=== PATIENT | female | born 1960 ===

== ENCOUNTER 2024-05-16 11:46 | Emergency (ER) | payer OTHER, SELFPAY ==
--- NOTE | ~2024-05-16 | CT_ITS ---
EXAMINATION: CT HEAD WITHOUT IV CONTRAST HISTORY: AMS. TECHNIQUE: Unenhanced helical CT of the head was performed per standard departmental protocol. Coronal and sagittal reformats of the head were also evaluated. One or more of the following techniques was used for dose reduction: Automated exposure control, adjustment of the mA and/or kV according to patient size, use of iterative reconstruction technique. DLP: 761 mGy-cm COMPARISON: There are no prior studies for comparison. FINDINGS: BRAIN: The brain parenchyma is unremarkable. There is normal mora/white differentiation. The ventricular system is normal in size and configuration. There is no mass effect or midline shift. No intra- or extra-axial fluid collections are identified. SINUSES: The visualized paranasal sinuses are clear. The mastoid air cells and middle ear cavities are well pneumatized. ORBITS: The visualized orbits are unremarkable. BONES/SOFT TISSUES: The extracranial soft tissues are unremarkable. The calvarium is intact. No suspicious lytic or sclerotic lesions. CT/CT head/brain wo IV con IMPRESSION: Unremarkable unenhanced head CT. Electronically signed by: Fabrice Benedict MD 05/16/2024 12:32 PM [facility]
--- NOTE | 2024-05-16 11:56 | ED_ITS ---
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 Patient states that she is feeling fine like she has been and feels nothing new today. [facility] staff stated they were concerned the patient was hypertensive and slurring her speech. Patient denies any dizziness, lightheadedness, abdominal pain, nausea, vomiting, fever, chills, blurry vision, double vision, loss of vision, chest pain, difficulty breathing, shortness of breath, back pain, night sweats, pain with urination, increased urinary frequency, increased urinary urgency, blood in her urine or stool, syncope or a near syncopal episode, recent trauma or falls, bowel incontinence, bladder incontinence, or any other complaints at this time. Relieving factors: none Exacerbating factors: none Associated symptoms: denies other symptoms Treatments prior to arrival: none Related Data Previous Rx's ?Medication ?Instructions ?Recorded cefuroxime axetil 250 mg tablet 250 mg PO BID 7 days #14 tabs 05/16/24 Allergies Allergy/AdvReac Type Severity Reaction Status Date / Time No Known Allergies Allergy Verified 05/16/24 12:05 Review of Systems 2 Constitutional: Constitutional: Reports no additional constitutional complaints, Denies chills, Denies fever(s) and Denies night sweats Eyes: Eyes: Reports no additional eye complaints, Denies blurry vision, Denies change in vision, Denies diplopia, Denies eye discharge, Denies loss of vision and Denies eye pain ENT: Denies dizziness Cardiovascular: Cardiovascular: Reports no additional cardiovascular complaints, Denies chest pain, Denies lightheadedness, Denies Loss of Consciousness and Denies dyspnea Respiratory: Respiratory: Reports no additional respiratory complaints and Denies dyspnea Gastrointestinal: Gastrointestinal: Reports no additional gastrointestinal complaints, Denies abdominal pain, Denies melena, Denies hematochezia, Denies change in bowel habits and Denies change in stool character Genitourinary: Genitourinary: Denies hematuria, Denies urinary frequency, Denies dysuria, Denies urinary incontinence, Denies urinary hesitancy and Denies urinary urgency Musculoskeletal: Musculoskeletal: Reports no additional musculoskeletal complaints, Denies numbness and Denies tingling Neurologic: Denies dizziness, Denies loss of vision, Denies numbness and Denies tingling Psychiatric: Psychiatric: Reports no additional psychiatric complaints Endocrine: Endocrine: Reports no additional endocrine complaints Hematologic/Lymphatic: Hematologic/Lymphatic: Reports no additional hematologic/lymphatic complaints Allergic/Immunologic: Allergic/Immunologic: Reports no additional allergic/immunologic complaints [facility] Past Medical History Attestation statement: The following information was validated with the patient. Source: old records reviewed and nursing notes reviewed Social History Social History Smoked in Last 30 Days: No Use of substances other than those prescribed or required for medical reasons: No Advance Directives: No Advance Directives Information Provided: Yes Physical Exam ED Vital Signs: Vital Signs - 24 hr 05/16/24 11:57 05/16/24 15:15 Temperature 98.4 F 98.0 F Pulse Rate 106 H 112 H Respiratory Rate 18 18 Blood Pressure 166/81 H 191/89 H Pulse Oximetry 97 96 Oxygen Delivery Method Room Air Room Air BMI result Body Mass Index 30.9 Const General: cooperative, no acute distress, alert and awake Nutritional Appearance: well nourished Orientation/consciousness: patient oriented x3 Limitations: no limitations [facility] Head: Yes normal to inspection and Yes atraumatic Ears: hearing grossly normal bilaterally and external ears normal General nose exam: Normal external nose present, no nasal discharge noted and no epistaxis Face and sinus: Yes normal facial exam, No abrasion and No laceration Mouth: Normal oral and palatal mucosa present, no drooling and no muffled voice Eyes General: appearance normal, both eyes and all related structures Periorbital: periorbital findings normal Eyelids: Yes eyelids normal Conjunctivae: conjunctivae normal Pupils: Equal, round and reactive pupils present EOM: EOMs intact bilaterally Neck Neck: Yes normal visual inspection, Yes full ROM and Yes no lymphadenopathy Chest Chest palpation & inspection: normal inspection of the chest Resp Effort & Inspection: normal respiratory effort and able to speak in complete sentences Cardio Rate: tachycardic Rhythm: regular rhythm GI Inspection: Yes normal to inspection Neuro General: patient oriented x3, moves all extremities and CN's II-XI intact bilaterally Cranial nerves: Yes Equal, round and reactive pupils present Cognition (Neuro): normal cognition Extrem General: Yes normal to inspection, Yes full ROM and Yes capillary refill normal Psych Appearance: grossly normal Mental Status: mental status grossly normal Affect: normal affect Attitude: cooperative Thought process: Normal thought process present Thought content: Normal thought content present Insight: Good insight present (Psych) NIH Stroke Scale Internal: Initial- Upon Arrival Time: 11:46 Level of Consciousness: Alert Level of Consciousness Questions: Answers both questions correctly Level of Consciousness Commands: Performs both tasks correctly Best Gaze: Normal Visual: No visual loss Facial Palsy: Normal Motor Arm (Right): No drift Motor Arm (Left): No drift Motor Leg (Right): No drift Motor Leg (Left): No drift Limb Ataxia: Absent Sensory: Normal Best Language: No aphasia Dysarthia: Normal Extinction and Inattention: No abnormality Score: 0 Medical Decision Making Medical Decision Making MDM Narrative: Patient is a 63 year old assigned female at with a 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 Patient's physical exam was as noted in the physical exam portion of this note. Patient's blood work was unremarkable. Patient's urine showed a possible UTI, will treat. Patient's EKG was unremarkable. Patient's head CT showed no acute process. Patient has a slow speech pattern which appears to be her baseline. I reviewed her most recent [facility] admission from 05/12-05/15 where she had an extensive work up for stroke / alerted mental status and it was negative. They noted her chronic tachycardia (reflected on her vitals during her stay there) and her slow speech pattern. She was evaluated by psychiatry there who suggested this was behavioral and recommended inpatient psychiatric treatment which is why she was transferred to [facility]. I called and spoke to Shani the JOB ORDER CLERK on at [facility] and gave her report / hand off about the patient's work up / findings. Patient has no concerns for acute stroke. I explained my physical exam findings as well as all test results to the patient. I answered all questions asked by the patient. I stressed the importance of the patient taking her medication as directed (either prescribed or as the over the counter packaging recommends). I stressed the importance of the patient following up with her primary care provider. I stressed the importance of the patient returning to the emergency department immediately if her symptoms were to worsen or if she were to develop any dizziness, shortness of breath, difficulty breathing, chest pain, blurry vision, loss of vision, nausea, vomiting, abdominal pain, fever, chills, back pain, or any other complaints. Patient verbalized agreement and understanding with this treatment plan and discharge back to [facility]. Differential Diagnosis Differential Diagnoses: The differential diagnosis associated with the presentation includes Abnormal behavior Chronic HTN Chronic tachycardia UTI Admission/Observation Consideration of admission/observation: Escalation of care including admission/observation considered Patient would have been admitted to the hospital had her work up had any findings where hospital admission was appropriate and her clinical presentation warranted hospital admission. Lab Data [facility] Lab Attestation statement: I reviewed the patient's lab results. My interpretation of these results are in the [facility] Rationale portion of this note. 05/16/24 13:03 05/16/24 13:03 Labs: Lab Results 05/16/24 05/16/24 05/16/24 Range/Units 10:30 13:03 13:32 WBC 11.1 H (4.8-10.8) X10*3/uL RBC 4.99 (4.20-5.50) X10*6/uL Hgb 15.0 (12.0-16.0) g/dl Hct 45.3 (37.0-47.0) % MCV 90.8 (80.0-98.0) fL MCH 30.1 (27.0-33.0) pg MCHC 33.1 (31.0-35.0) g/dl RDW 12.5 (11.0-16.0) % Plt Count 306 (160-400) X10*3/uL MPV 9.6 (9.4-12.3) fL Immature Gran % (Auto) 0.4 (0.0-0.4) % Neut % (Auto) 81.9 H (45-73) % Lymph % (Auto) 8.6 L (20-40) % [place] % (Auto) 8.4 (2-11) % Eos % (Auto) 0.2 (0-4) % Baso % (Auto) 0.5 (0-2) % Lymph # (Auto) 1.0 L (1.2-4.9) X10*3/uL [place] # (Auto) 0.9 (0.1-1.2) X10*3/uL Eos # (Auto) 0.0 (0.0-0.4) X10*3/uL Baso # (Auto) 0.1 (0.0-0.2) X10*3/uL Abs Immat Gran (auto) 0.04 H (0.00-0.03) X10*3/uL Absolute Neuts (auto) 9.1 H (2.0-8.3) x10*3/uL Absolute Nucleated RBC 0.000 (0.0-0.012) X10*3/uL Nucleated RBC % (auto) 0.0 (0.0-0.2) /100WBC PT 12.1 (10.9-12.4) SEC INR 1.0 (0.9-1.1) APTT 32.8 (26.0-36.8) SEC Sodium 140 (135-145) mmol/L Potassium 3.8 (3.3-5.1) mmol/L Chloride 104 (96-108) mmol/L Carbon Dioxide 21 L (22-29) mmol/L Anion Gap 19 (12-20) BUN 19 H (9-16) mg/dL Creatinine 0.78 (0.5-1.4) mg/dL Estim Creat Clear Calc 78.3 Estimated GFR > 60 Random Glucose 108 (60-115) mg/dL Calcium 10.1 (8.4-10.2) mg/dL Magnesium 2.0 (1.6-2.6) mg/dL Total Bilirubin 0.6 (0.0-1.0) mg/dL AST 32 H (5-31) U/L ALT 24 (0-31) U/L Alkaline Phosphatase 135 H (39-117) U/L Total Protein 9.3 H (6.5-8.0) g/dL Albumin 4.5 (3.5-5.0) g/dL TSH 3.22 (0.32-4.0) uIU/mL Hold Red Top See Note Hold Yellow Top See Note Urine Color Urine Appearance Urine pH (5.0-9.0) Ur Specific [place] (1.005-1.025) Urine Protein (Neg-Trace) mg/dL Urine Glucose (UA) (Negative) mg/dL Urine Ketones (Negative) mg/dL Urine Blood (Negative) Urine Nitrite (Negative) Ur Leukocyte Esterase (Negative) Urine RBC (0-2) /HPF Urine WBC (0-5) /HPF Ur Squamous Epith Cells (0-2) /HPF Urine Bacteria (None Seen) Hyaline Casts (0-2) /LPF Valproic Acid < 12.5 L (50.0-100.0) mcg/mL [place] < 0.10 L (0.60-1.20) mmol/L Influenza Type A (PCR) NEGATIVE (Negative) Influenza Type B (PCR) NEGATIVE (Negative) RSV RNA Qual (PCR) NEGATIVE (Negative) SARS-CoV-2 RNA (RT-PCR) NEGATIVE (Negative) 05/16/24 Range/Units 14:48 WBC (4.8-10.8) X10*3/uL RBC (4.20-5.50) X10*6/uL Hgb (12.0-16.0) g/dl Hct (37.0-47.0) % MCV (80.0-98.0) fL MCH (27.0-33.0) pg MCHC (31.0-35.0) g/dl RDW (11.0-16.0) % Plt Count (160-400) X10*3/uL MPV (9.4-12.3) fL Immature Gran % (Auto) (0.0-0.4) % Neut % (Auto) (45-73) % Lymph % (Auto) (20-40) % [place] % (Auto) (2-11) % Eos % (Auto) (0-4) % Baso % (Auto) (0-2) % Lymph # (Auto) (1.2-4.9) X10*3/uL [place] # (Auto) (0.1-1.2) X10*3/uL Eos # (Auto) (0.0-0.4) X10*3/uL Baso # (Auto) (0.0-0.2) X10*3/uL Abs Immat Gran (auto) (0.00-0.03) X10*3/uL Absolute Neuts (auto) (2.0-8.3) x10*3/uL Absolute Nucleated RBC (0.0-0.012) X10*3/uL Nucleated RBC % (auto) (0.0-0.2) /100WBC PT (10.9-12.4) SEC INR (0.9-1.1) APTT (26.0-36.8) SEC Sodium (135-145) mmol/L Potassium (3.3-5.1) mmol/L Chloride (96-108) mmol/L Carbon Dioxide (22-29) mmol/L Anion Gap (12-20) BUN (9-16) mg/dL Creatinine (0.5-1.4) mg/dL Estim Creat Clear Calc Estimated GFR Random Glucose (60-115) mg/dL Calcium (8.4-10.2) mg/dL Magnesium (1.6-2.6) mg/dL Total Bilirubin (0.0-1.0) mg/dL AST (5-31) U/L ALT (0-31) U/L Alkaline Phosphatase (39-117) U/L Total Protein (6.5-8.0) g/dL Albumin (3.5-5.0) g/dL TSH (0.32-4.0) uIU/mL Hold Red Top Hold Yellow Top Urine Color Yellow Urine Appearance Cloudy Urine pH 5.5 (5.0-9.0) Ur Specific [place] >= 1.030 H (1.005-1.025) Urine Protein 30 (1+) H (Neg-Trace) mg/dL Urine Glucose (UA) Negative (Negative) mg/dL Urine Ketones 80 (Negative) mg/dL Urine Blood Negative (Negative) Urine Nitrite Negative (Negative) Ur Leukocyte Esterase Moderate (2+) H (Negative) Urine RBC 0-2 (0-2) /HPF Urine WBC >50 H (0-5) /HPF Ur Squamous Epith Cells 0-2 (0-2) /HPF Urine Bacteria Trace (None Seen) Hyaline Casts 3-5 (0-2) /LPF Valproic Acid (50.0-100.0) mcg/mL [place] (0.60-1.20) mmol/L Influenza Type A (PCR) (Negative) Influenza Type B (PCR) (Negative) RSV RNA Qual (PCR) (Negative) SARS-CoV-2 RNA (RT-PCR) (Negative) Independent Interpretation I performed an independent interpretation of an: EKG and CT Scan Interpretation: My interpretation is in agreement with the radiologist's impression of this imaging study. L Report Number: [id number]: Total DLP = 761.00 mGy-cm EXAMINATION: CT HEAD WITHOUT IV CONTRAST HISTORY: AMS. TECHNIQUE: Unenhanced helical CT of the head was performed per standard departmental protocol. Coronal and sagittal reformats of the head were also evaluated. One or more of the following techniques was used for dose reduction: Automated exposure control, adjustment of the mA and/or kV according to patient size, use of iterative reconstruction technique. DLP: 761 mGy-cm COMPARISON: There are no prior studies for comparison. FINDINGS: BRAIN: The brain parenchyma is unremarkable. There is normal mora/white differentiation. The ventricular system is normal in size and configuration. There is no mass effect or midline shift. No intra- or extra-axial fluid collections are identified. SINUSES: The visualized paranasal sinuses are clear. The mastoid air cells and middle ear cavities are well pneumatized. ORBITS: The visualized orbits are unremarkable. BONES/SOFT TISSUES: The extracranial soft tissues are unremarkable. The calvarium is intact. No suspicious lytic or sclerotic lesions. CT/CT head/brain wo IV con IMPRESSION: Unremarkable unenhanced head CT. Electronically signed by: Farbice Benedict MD 05/16/2024 12:32 PM [facility] Dictated By: Fabrice Benedict MD Signed By: Electronically signed by Fabrice Benedict MD 05/16/24 1232 I independently interpreted this EKG and am in agreement with the below findings: Vent. Rate: 106 BPM Atrial Rate: 106 BPM P-R Int: 122 ms QRS Dur: 78 ms QT Int: 346 ms P-R-T Axes: 67 -48 44 degrees QTcB Int: 459 ms Sinus tachycardia Left anterior fascicular block No previous ECGs available Referred By: Eva Gomez Electronically Signed By: ONI PAREDES MD Dictated By: Oni Paredes MD Signed By: Electronically signed by Oni Paredes MD 05/16/24 1306 Radiology Impression Discussion of test interpretation with radiology: I have reviewed the radiologist's reading. Independent Historian Clinical information obtained from an independent historian. History obtained from or confirmed by: EMS (EMS provided additional history and confirmed the history provided by the patient.) External Record Review External record reviewed: Other (reviewed [facility] records as noted in the MDM Rationale portion of this note. ) Prescription Management I considered prescription management with: Antibiotic (patient prescribed an antibiotic as noted in the MDM Rationale portion of this note) Chronic Conditions Patient?s care impacted by: Hypertension Discharge Plan Discharge Clinical Impression: High blood pressure, Chronic tachycardia, Urinary tract infection Patient Disposition: [facility] Transfer Details: Back to [facility] Instructions: Urinary Tract Infection in Women (DC) Additional Instructions: Your urine showed evidence of a possible UTI - please take your antibiotic for this. Follow up with your primary care provider. Return to the emergency department immediately if your symptoms worsen or if you develop any dizziness, shortness of breath, difficulty breathing, chest pain, blurry vision, loss of vision, nausea, vomiting, abdominal pain, fever, chills, back pain, or any other complaints. Prescriptions: New cefuroxime axetil 250 mg tablet 250 mg PO BID 7 Days Qty: 14 0RF Referrals: Casimiro Dixon DO, MD [Primary Care Provider] - Print Language: Danish
[2024-05-16 11:57] VITALS: BP 166/81; BP 170/116; PULSE 106; PULSE 114; RESP 18; TEMP 36.9; O2SAT 97; O2SAT 98; BMI 30.9
--- NOTE | 2024-05-16 12:11 | ECG_ITS ---
Test Reason : AMS Blood Pressure : */* mmHG Vent. Rate : 106 BPM Atrial Rate : 106 BPM P-R Int : 122 ms QRS Dur : 78 ms QT Int : 346 ms P-R-T Axes : 67 -48 44 degrees QTcB Int : 459 ms Sinus tachycardia Left anterior fascicular block Abnormal ECG No previous ECGs available Referred By: Eva Gomez Electronically Signed By: CHIKIS PAREDES MD
[2024-05-16 13:10] LABS: MANUAL DIFF FLAG NO
[2024-05-16 13:18] LABS: Basophils Absolute Auto 0.1 X10*3/uL (0.0-0.2); Basophils Percent Auto 0.5 % (0-2); Eosinophils Percent Auto 0.2 % (0-4); Hematocrit 45.3 % (37.0-47.0); Imm Gran Abs Auto 0.04 X10*3/uL (0.00-0.03); Imm Gran Pct Auto 0.4 % (0.0-0.4); Lymphocytes Percent Auto 8.6 % (20-40); Mean Corpuscular HGB Conc 33.1 g/dl (31.0-35.0); Mean Corpuscular Hemoglobin 30.1 pg (27.0-33.0); Mean Corpuscular Volume 90.8 fL (80.0-98.0); Mean Platelet Volume 9.6 fL (9.4-12.3); Monocytes Absolute Auto 0.9 X10*3/uL (0.1-1.2); Monocytes Percent Auto 8.4 % (2-11); Neutrophils Absolute Auto 9.1 x10*3/uL (2.0-8.3); Neutrophils Percent Auto 81.9 % (45-73); Platelet Count 306 X10*3/uL (160-400); Red Blood Count 4.99 X10*6/uL (4.20-5.50); Red Cell Distribution Width 12.5 % (11.0-16.0); White Blood Count 11.1 X10*3/uL (4.8-10.8)
[2024-05-16 13:20] LABS: Prothrombin Time 12.1 SEC (10.9-12.4)
[2024-05-16 13:24] LABS: Partial Thromboplastin Time 32.8 SEC (26.0-36.8)
--- OUTSIDE RECORDS SUMMARY | 2024-05-16 13:34 | XMS_ITS | Continuity of Care Document ---
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 Children, Spouse. Nutrition/Health Diet: Regular, Low sodium. Caffeine intake amount: 1cup daily. Feels highly stressed: Yes. Substance Abuse Use: Never. Tobacco Use: Never smoker. Other tobacco user in household: No. Family History Diabetes mellitus type II: Father. Immunizations Vaccine Date Status [id number] 12y+ bivalent booster vax 01/21/2022 Recorded influenza virus vaccine, inactivated 01/14/2022 Recorded SARS-CoV-2 mRNA ([id number]) vax 07/20/2021 Recorded SARS-CoV-2 (COVID-19) mRNA BNT-162b2 vac 01/23/2021 Recorded influenza virus vaccine, inactivated 01/09/2021 Recorded SARS-CoV-2 (COVID-19) mRNA BNT-162b2 vac 06/01/2020 Recorded SARS-CoV-2 (COVID-19) mRNA BNT-162b2 vac 05/11/2020 Recorded pneumococcal 23-valent vaccine - Not Given Comments : Patient Refuses pneumococcal 23-valent vaccine - Not Given Comments : Patient Refuses influenza virus vaccine, inactivated 02/14/2019 Recorded influenza virus vaccine, inactivated 12/22/2013 Recorded FluLaval (oldterm) 01/12/2009 Given Comments : CDC info given to pt. Admission evaluation note * Richard Major DO: PERFORM, MODIFY Event Display: Admission Note Authored Date: Patient: ??LI ROHDES ? Age:??63 Years?Sex:??Female?:??1960?? Chief Complaint/Reason for Consultation pt coming from home eith c/o fatigue x 2 days, slow to respone. 0 on stroke scale. A&O x 4. independently ambulates. History of Present Illness This is a 63-year-old female with past medical history AVNRT status post ablation 2007 and history of coxsackievirus with cardiomyopathy, hypertension depression and obesity who presented with altered mental status. ?? Per discussion with ED provider patient had worsening symptoms beginning 3 days ago worsening fatigue and altered mental status compared to baseline. ?? Upon arrival to ED patient was hemodynamically stable and afebrile satting 100% on room air. Lab work without leukocytosis, hemoglobin and??platelets within normal limit.?? Creatinine 0.65 without electrolyte abnormality.?? Alk phos elevated 142 other LFTs within normal limit. Lactate within normallimit 1.3.?? Troponin 10.?? TSH within normal limits at 2.24 blood test 5.?? Serum ethanol was undetectable.?? Salicylate level and serum level were negative.?? Ammonia within normal limitsat 34.?? CT of the head showed no acute intracranial pathology CT angio of the head and neck is pending formal read but preliminary V rad report showed no acute abnormalities or large vessel occlusion.?? UA was ordered but has yet to be provided and urine drug screen pending sample as well.?? Patient was placed under observation.?? General medicine for further evaluation of altered mental status. ?? Upon my evaluation patient is resting in stretcher in ED. She is alert to person, place, time and events. Tells me some of her family members were sick last week with the flu. Patient herself did not have same symptoms but reports she has been fatigued tired and having poor appetite. Denies fever, shortness of breath, cough, chest pain. Had nausea without vomiting. No abdominal pain, dysuria, vision changes, numbness tingling, weakness. Has had intermittent dull headache. Urinating and defecating without issue. Taking her home medications as prescribed. She denies alcohol use, tobacco use or other drug use. Denied vitamins or other herbal supplements. We went into a long discussion about how historically she was admitted to the psych unit here at [facility] and??diagnosed with bipolar disorder. She was previously on Abilify,??which she no longer takes. 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 She was accused of hoarding material from the school and had issues with other staff members. She ultimately lost??her job and then lost an appeal and is no longer eligible to work with children. She has been feeling depressed about this because since losing her job her is the source of income for their family and her son has medical issues of hisown. She is overall worried because she cant get a job and had to declare bankruptcy. At present she denies SI, HI, auditory or visual hallucinations. She reports having flashbacks about the events surrounding losing her job and this has been upsetting to her. She is agreeable to seeing psychology while in hospital. She is full code.? Review of Systems A full review of systems was completed and is otherwise negative except as mentioned in history of present illness. Objective Vital Signs?? Temperature: 98.4 DegF (05/14/24 01:00:00) Temperature Route: Oral (05/14/24:00:00) Pulse Rate:??97 bpm??High (05/14/24:00:00) Respiratory Rate: 16 br/min (05/14/24:00:00) Systolic Blood Pressure: 134 mm Hg (05/14/24:00:00) Diastolic Blood Pressure: 67 mm Hg (05/14/24:00:00) Pulse Pressure: 67 mm Hg (05/14/24:00:00) Oxygen Saturation: 99 % (05/14/24:00:00) Mode of Delivery (Oxygen): Room air (05/14/24 01:00:00) Early Warning Score: 0 (05/14/24 01:12:57) ?? Physical Exam Constitutional: Alert, in no distress, appears stated age Mental Status: Oriented to person, place and time. Head: Normocephalic. Eyes: Pupils are equal, round and reactive to light. Extraocular muscles intact. Ear, Nose and Throat: Oropharynx clear, mucous membranes moist. Ears and nose without masses, lesions or deformities. Trachea midline. Neck: Supple, Full range of motion. Respiratory: Clear to auscultation. No wheezing, rales or rhonchi. Cardiovascular: S1 S2 regular. No murmurs, rubs or gallops. No JVD, no LE edema. Gastrointestinal: Abdomen soft, non-tender, non-distended. Normal bowel sounds. No pulsatile mass. Neurologic: No focal neurological deficits. Moves all extremities spontaneously. Skin: No rashes or lesions. No petechiae or purpura.?? Musculoskeletal: No cyanosis or clubbing. No gross deformities. Normal range of motion. Psychiatric: Normal mood and affect Assessment/Plan Assessment:??This is a 63-year-old female with past medical history AVNRT status post ablation 2008and history of coxsackievirus with cardiomyopathy, hypertension depression and obesity who presented with altered mental status. ?? AMS (altered mental status) (R41.82):?? Labwork for AMS unremarkable.??CTH unremarkable.??CTA head prelim without acute pathology.??No neuro deficits on exam. Suspect her presentation is psychological with??hx of biploar??disorder and no longer on medication. Patient denies active SI, HI, auditory or visual hallucinations. Is endorsing flashbacks about her issues with losing the appeal to work with children due to history of hoarding and diagnosis of BPD. She is??currently??calm cooperative and agreeable to see psychology.? Followup formal read CTA head Followup utox??and UA?? Check viral pathogen panel PCR Psych consult SW consult? Hypertension (I10):?? Continue home metoprolol and lisinopril Considered changing metoprolol to something less lipophilic like carvedilol for benefit of her mental status but she has been on this since at least??2019 and??can be discussed with her vending service technician on outpatient followup? Hypothyroidism (E03.9):?? TSH wnl?? Continue home levothyroxine? VTE Prophylaxis:??Ambulatory ?VTE Prophylaxis Assessment:??Risk Level documented as Low Risk ?? Code Status:??Full - discussed on admission?Order Code Status:??Code Status Ordered ?? This note was created using [employer] speech recognition software, there may be unwanted word substitution, typographical errors or grammatical error, an attempt at proofreading has been made to minimize errors. please call if there are any questions regarding plan of care. ?? I spent a total of 60 minutes today reviewing the chart / medical records, evaluating the patient, evaluating and interpreting laboratory and imaging data, formulating and discussing the treatmentplan, and documenting the encounter Histories Allergies Allergies ?(Active and Proposed Allergies Only) Bactrim? (Severity: Unknown severity, Onset: Unknown) Vicodin? (Severity: Unknown severity, Onset: Unknown) ? Past Medical History/Problem List Active Problems(5) Acute depression External otitis of left ear, subacute Hyperlipidemia Severe obesity (BMI 35.0-39.9) with comorbidity SVT - Supraventricular tachycardia ? Past Surgical History No surgery history documented. ? Social History Alcohol Details:??Use: Current. ??Frequency: 1-2 times per month. Employment/School Details:??Status: Employed. Exercise Details:??Regular exercise: Yes. Home/Environment Details:??Living situation: Home/Independent. ??Lives with: Children, Spouse. Nutrition/Health Details:??Diet: Regular, Low sodium. ??Caffeine intake amount: 1cup daily. ??Feels highly stressed:Yes. Substance Abuse Details:??Use: Never. Tobacco Details:??Use: Never smoker. ??Other tobacco user in household: No. ? Family History Father: Diabetes mellitus type II ? Medications Home Medications Levothyroxine (levothyroxine 0.112 mg oral tablet)??1 tab(s) 112 Microgram By Mouth Daily Lisinopril (lisinopril 10 mg oral tablet)??10 Milligram 1 tablet By Mouth Daily Metoprolol (Metoprolol Succinate ER 50 mg oral tablet, extended release)??See Instructions TAKE 1 TABLET BY MOUTH EVERY DAY ? Results Recent Labs BLOOD COUNT & DIFF WBC 9.3 k/mm3 ()?? 05/13/2024 21:21 RBC 4.75 m/mm3 ()?? 05/13/2024 21:21 Hgb 14.4 Gm/dL ()?? 05/13/2024 21:21 Hct 44.4 % ()?? 05/13/2024 21:21 MCV 93.5 femtoliters ()?? 05/13/2024 21:21 MCH 30.3 pg ()?? 05/13/2024 21:21 MCHC 32.4 Gm/dL (Low)?? 05/13/2024 21:21 Platelet Count 346 k/mm3 ()?? 05/13/2024 21:21 RDW-SD 42.9 femtoliters ()?? 05/13/2024 21:21 MPV 10.1 femtoliters ()?? 05/13/2024 21:21 Nucleated RBC (Automated) 0.0 #/100 WBC'S ()?? 05/13/2024 21:21 Abs. NRBC 0.0 k/mm3 ()?? 05/13/2024 21:21 Abs. Neut 7.4 k/mm3 (High)?? 05/13/2024 21:21 Abs. Lymph 1.1 k/mm3 ()?? 05/13/2024 21:21 Abs. Polk 0.7 k/mm3 ()?? 05/13/2024 21:21 Abs. Eo 0.0 k/mm3 ()?? 05/13/2024 21:21 Abs. Baso 0.1 k/mm3 ()?? 05/13/2024 21:21 Neut % 80.1 % (High)?? 05/13/2024 21:21 Lymph % 11.4 % (Low)?? 05/13/2024 21:21 Polk % 7.3 % ()?? 05/13/2024 21:21 Eos % 0.2 % ()?? 05/13/2024 21:21 Baso % 0.6 % ()?? 05/13/2024 21:21 Imm Gran 0.4 % ()?? 05/13/2024 21:21 Abs. Imm Gran 0.0 k/mm3 ()?? 05/13/2024 21:21 ?? CARDIAC High Sensitivity Troponin (HSTnT) 10 ng/L ()?? 05/13/2024 21:21 ?? CHEM GENERAL Sodium 139 mmol/L ()?? 05/13/2024 21:21 Potassium 4.0 mmol/L ()?? 05/13/2024 21:21 Chloride 100 mmol/L ()?? 05/13/2024 21:21 Bicarbonate Level 25 mmol/L ()?? 05/13/2024 21:21 Anion Gap 14 mmol/L ()?? 05/13/2024 21:21 Glucose Level 98 mg/dL ()?? 05/13/2024 21:21 BUN 14 mg/dL ()?? 05/13/2024 21:21 Creatinine-Blood 0.65 mg/dL ()?? 05/13/2024 21:21 Estimated GFR Creatinine 100 ML/MIN/1.73 M2 ()?? 05/13/2024 21:21 Calcium 9.9 mg/dL ()?? 05/13/2024 21:21 Protein, Total 8.7 Gm/dL (High)?? 05/13/2024 21:21 Albumin 4.6 Gm/dL ()?? 05/13/2024 21:21 AG Ratio 1.1 ()?? 05/13/2024 21:21 Alkaline Phosphatase 142 units/L (High)?? 05/13/2024 21:21 AST (SGOT) 17 units/L ()?? 05/13/2024 21:21 ALT (SGPT) 15 units/L ()?? 05/13/2024 21:21 Bilirubin, Total 0.5 mg/dL ()?? 05/13/2024 21:21 Lactate 1.3 mmol/L ()?? 05/13/2024 21:21 ?? ENDOCRINE/TUMOR MARKER TSH 2.24 uIU/mL ()?? 05/13/2024 21:21 Blood 5 mIU/mL (High)?? 05/13/2024 21:21 ?? MISC. CHEMISTRY Ammonia, Venous 34 ??mole/L ()?? 05/13/2024 22:10 ?? TOXICOLOGY/TDM Ethanol, Serum or Plasma NONE DETECTED mg/dL ()?? 05/13/2024 21:21 Salicylate Level <0.3 mg/dL (Low)?? 05/13/2024 21:21 Acetaminophen Level <5 mg/L (Low)?? 05/13/2024 21:21 ? EKG study * Event Display: ECG 12-Lead Authored Date: Please click on pdf link to open report * Event Display: ECG 12-Lead Authored Date: Ventricular Rate: 95 BPM Atrial Rate: 95 BPM P-R Interval: 132 ms QRS Duration: 76 ms Q-T Interval: 358 ms QTC Calculation(Bazett): 449 ms P [place]: 64 degrees R [place]: -39 degrees T [place]: 20 degrees Normal sinus rhythm Left axis deviation ST and T wave abnormality, consider lateral ischemia Abnormal ECG When compared with ECG of 21-Mar-2022 03:10, No significant change was found Confirmed by LISBET CURRY [facility] ([id number]) on 05/14/2024 5:15:15 PM [place]: [facility] * Elda Barrera MD: PERFORM Event Display: [facility] Authored Date: Patient: ??LI RHODES ? Age:??63 Years?Sex:??Female?:??1960?? Subjective Patient seen and examined.?? Slow to answer to my questions. ??Denies any pain or discomfort. ??States that she has not been feeling well for the past few days.?? Denies any difficulty breathing no chest pain no palpitations dizziness or lightheadedness. ??Denies any nausea vomiting??pain at this time. She keeps??telling me??that she needs to??talk??to??the police as she has??something to tell them.?? She states that she has already spoken about this to the high school social science teacher and??waiting. Review of Systems Reviewed and denied any symptoms??except as mentioned above Objective ? Vital Signs?? Temperature: 98.4 DegF (05/14/24 11:48:00) Temperature Route: Oral (05/14/24 11:48:00) Pulse Rate: 76 bpm (05/14/24 11:48:00) Respiratory Rate: 16 br/min (05/14/24 11:48:00) Systolic Blood Pressure: 135 mm Hg (05/14/24 11:48:00) Diastolic Blood Pressure: 74 mm Hg (05/14/24 11:48:00) Blood pressure sites: Arm, left (05/14/24 11:48:00) Mean Arterial Pressure: 96 mm Hg (05/14/24 05:57:00) Pulse Pressure: 49 mm Hg (05/14/24 05:57:00) Oxygen Saturation: 97 % (05/14/24 11:48:00) Mode of Delivery (Oxygen): Room air (05/14/24 11:48:00) Early Warning Score: 0 (05/14/24 11:53:27) ? Physical Exam Middle-aged female not in any distress, ill-appearing HEENT PERRLA, EOMI Neck supple Chest clear to auscultation Heart S1-S2 regular Abdomen soft nontender bowel sounds present Extremities no edema [employer] LEADER awake alert oriented x3.?? No gross focal neurological deficit _ Inpatient Medications Medications (12) Active SCHEDULED: (4) Levothyroxine 112 mcg Tablet (levothyroxine 0.112 mg oral tablet) ??112 mcg, By Mouth, Daily Lisinopril 10 mg Tablet (lisinopril 10 mg oral tablet) ??10 mg, By Mouth, Daily Metoprolol 50 mg XL Tablet (Metoprolol Succinate ER 50 mg oral tablet, extended release) ??50 mg, By Mouth, Daily NaCl 0.9% Flush 3ml (NaCL 0.9% Flush) ??3 mL, IV Push, Every 8 hours CONTINUOUS: (0) PRN: (8) Acetaminophen 325 mg Tablet (Acetaminophen Tablet) ??650 mg, By Mouth, Every 4 hours Dextromethorphan-Guaifenesin 20 mg-200 mg/10 mL Liqu UD (Robitussin DM Liquid) ??10 mL, By Mouth, Every 4 hours Docusate Sodium 100 mg Capsule (Docusate Sodium Capsule) ??100 mg 1 capsule, By Mouth, 2 times a day Melatonin 3 mg Tablet (Melatonin Tablet) ??3 mg, By Mouth, Daily at bedtime NaCl 0.9% Flush 3ml (NaCL 0.9% Flush) ??3 mL, IV Push, Every 8 hours Polyethylene Glycol 17 Gm Powder (MiraLax Powder) ??17 Gm 1 pack/packet, By Mouth, Daily Senna Tablet ??8.6 mg 1 tablet, By Mouth, 2 times a day Simethicone 80 mg Chewable Tablet (Simethicone Tablet) ??80 mg, Chew, 3 times a day ? Results Recent Labs BLOOD COUNT & DIFF WBC 9.3 k/mm3 ()?? 05/13/2024 21:21 RBC 4.75 m/mm3 ()?? 05/13/2024 21:21 Hgb 14.4 Gm/dL ()?? 05/13/2024 21:21 Hct 44.4 % ()?? 05/13/2024 21:21 MCV 93.5 femtoliters ()?? 05/13/2024 21:21 MCH 30.3 pg ()?? 05/13/2024 21:21 MCHC 32.4 Gm/dL (Low)?? 05/13/2024 21:21 Platelet Count 346 k/mm3 ()?? 05/13/2024 21:21 RDW-SD 42.9 femtoliters ()?? 05/13/2024 21:21 MPV 10.1 femtoliters ()?? 05/13/2024 21:21 Nucleated RBC (Automated) 0.0 #/100 WBC'S ()?? 05/13/2024 21:21 Abs. NRBC 0.0 k/mm3 ()?? 05/13/2024 21:21 Abs. Neut 7.4 k/mm3 (High)?? 05/13/2024 21:21 Abs. Lymph 1.1 k/mm3 ()?? 05/13/2024 21:21 Abs. Polk 0.7 k/mm3 ()?? 05/13/2024 21:21 Abs. Eo 0.0 k/mm3 ()?? 05/13/2024 21:21 Abs. Baso 0.1 k/mm3 ()?? 05/13/2024 21:21 Neut % 80.1 % (High)?? 05/13/2024 21:21 Lymph % 11.4 % (Low)?? 05/13/2024 21:21 Polk % 7.3 % ()?? 05/13/2024 21:21 Eos % 0.2 % ()?? 05/13/2024 21:21 Baso % 0.6 % ()?? 05/13/2024 21:21 Imm Gran 0.4 % ()?? 05/13/2024 21:21 Abs. Imm Gran 0.0 k/mm3 ()?? 05/13/2024 21:21 ?? CARDIAC High Sensitivity Troponin (HSTnT) 10 ng/L ()?? 05/13/2024 21:21 ?? CHEM GENERAL Sodium 139 mmol/L ()?? 05/13/2024 21:21 Potassium 4.0 mmol/L ()?? 05/13/2024 21:21 Chloride 100 mmol/L ()?? 05/13/2024 21:21 Bicarbonate Level 25 mmol/L ()?? 05/13/2024 21:21 Anion Gap 14 mmol/L ()?? 05/13/2024 21:21 Glucose Level 98 mg/dL ()?? 05/13/2024 21:21 BUN 14 mg/dL ()?? 05/13/2024 21:21 Creatinine-Blood 0.65 mg/dL ()?? 05/13/2024 21:21 Estimated GFR Creatinine 100 ML/MIN/1.73 M2 ()?? 05/13/2024 21:21 Calcium 9.9 mg/dL ()?? 05/13/2024 21:21 Protein, Total 8.7 Gm/dL (High)?? 05/13/2024 21:21 Albumin 4.6 Gm/dL ()?? 05/13/2024 21:21 AG Ratio 1.1 ()?? 05/13/2024 21:21 Alkaline Phosphatase 142 units/L (High)?? 05/13/2024 21:21 AST (SGOT) 17 units/L ()?? 05/13/2024 21:21 ALT (SGPT) 15 units/L ()?? 05/13/2024 21:21 Bilirubin, Total 0.5 mg/dL ()?? 05/13/2024 21:21 Lactate 1.3 mmol/L ()?? 05/13/2024 21:21 ?? ENDOCRINE/TUMOR MARKER TSH 2.24 uIU/mL ()?? 05/13/2024 21:21 Blood 5 mIU/mL (High)?? 05/13/2024 21:21 ?? MISC. CHEMISTRY Ammonia, Venous 34 ??mole/L ()?? 05/13/2024 22:10 ?? TOXICOLOGY/TDM Ethanol, Serum or Plasma NONE DETECTED mg/dL ()?? 05/13/2024 21:21 Salicylate Level <0.3 mg/dL (Low)?? 05/13/2024 21:21 Acetaminophen Level <5 mg/L (Low)?? 05/13/2024 21:21 ?? VIROLOGY Adenovirus by PCR NEGATIVE ()?? 05/14/2024 11:55 Coronavirus 229E by PCR (not COVID-19) NEGATIVE ()?? 05/14/2024 11:55 Coronavirus HKU1 by PCR (not COVID-19) NEGATIVE ()?? 05/14/2024 11:55 Coronavirus NL63 by PCR (not COVID-19) NEGATIVE ()?? 05/14/2024 11:55 Coronavirus OC43 by PCR (not COVID-19) POSITIVE (Abnormal)?? 05/14/2024 11:55 Human Metapneumovirus by PCR NEGATIVE ()?? 05/14/2024 11:55 Rhinovirus/Enterovirus by PCR NEGATIVE ()?? 05/14/2024 11:55 Influenza A by PCR NEGATIVE ()?? 05/14/2024 11:55 Influenza B by PCR NEGATIVE ()?? 05/14/2024 11:55 Parainfluenza 1 by PCR NEGATIVE ()?? 05/14/2024 11:55 Parainfluenza 2 by PCR NEGATIVE ()?? 05/14/2024 11:55 Parainfluenza 3 by PCR NEGATIVE ()?? 05/14/2024 11:55 Parainfluenza 4 by PCR NEGATIVE ()?? 05/14/2024 11:55 RSV by PCR NEGATIVE ()?? 05/14/2024 11:55 Bordetella Pertussis by PCR NEGATIVE ()?? 05/14/2024 11:55 Chlamydophila Pneumoniae by PCR NEGATIVE ()?? 05/14/2024 11:55 Mycoplasma Pneumoniae by PCR NEGATIVE ()?? 05/14/2024 11:55 COVID-19 (SARS-CoV-2) by PCR NEGATIVE ()?? 05/14/2024 11:55 Bordetella Parapertussis by PCR NEGATIVE ()?? 05/14/2024 11:55 ? Image ?CT Angio Neck??05/13/2024 21:51 by Antony Naylor ?CT Angio Head??05/13/2024 21:51 by Antony Naylor ? Assessment/Plan Chief Complaint: pt coming from home eith c/o fatigue x 2 days, slow to respone. 0 on stroke scale.A&O x 4. independently ambulates. ?? Diagnoses AMS (altered mental status) ??(R41.82) Hypertension ??(I10) Hypothyroidism ??(E03.9) ?? 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 In the emergencyroom patient was noted to be hemodynamically stable.?? Troponin within normal limit.?? All labs normal.?? CT head did not show any acute intracranial abnormality.?? Patient admitted with concern for the change in mental status from her baseline. ? Altered mental status/encephalopathy Unclear, CT head without any acute abnormality.?? CTA done which shows no acute intracranial large vessel occlusion.?? Moderate focal stenosis of the proximal cavernous segment of the right ICA.?? Nohemodynamically significant stenosis of extracranial in terminal carotid or vertebral arteries at this time. No signs of any acute infection, no significant electrolyte abnormalities noted as to the possible cause for the mental status changes. Viral panel negative. Patient's speech is slow, and talking about things related at the time while she was working. Seen by high school social science teacher, discussed with psych, will see the patient as well. No other acute medical issues noted. ?? History of cardiomyopathy Patient reports history of coxsackie induced cardiomyopathy in the past. Follows with cardiology, had an echo in February 2024 which showed mildly reduced EF of 45%.?? Was seen by cardiology at that time and given no symptoms plan was to follow-up with a repeat echocardiogram this month. Currently without any symptoms continue to follow for now. ?? Hypertension on metoprolol and lisinopril. ?? Hypothyroidism TSH within normal limits continue levothyroxine ?? DVT prophylaxis encourage ambulation ?? CODE STATUS is full ?? Disposition discussed with social work and psych, awaiting full psych eval at this time and awaiting to talk to patient's as well.?? Psych to get back regarding final plan and recs - medically stable?? - may need inpatient psych admission ? Note * Bruce CURRY, Elda: PERFORM Event Display: Discharge/Transfer Note Hospital Authored Date: [id number] Patient: ??LI RHODES ? Age:??63 Years?Sex:??Female?:??1960?? Patient Information Discharge Location: [facility] Primary Care Physician: Casimiro Dixon DO Admit Date/Time: 05/13/2024 19:04 Discharge Disposition Discharge Disposition: inpatient psych??facility Discharge Diagnosis Hypertension (I10) Hypothyroidism (E03.9) AMS (altered mental status) (R41.82) BPD untreated _ Discharge Medications Aripiprazole (Abilify 5 mg oral tablet)??5 Milligram By Mouth Daily for 30 Days Levothyroxine (levothyroxine 0.112 mg oral tablet)??1 tab(s) 112 Microgram By Mouth Daily Lisinopril (lisinopril 10 mg oral tablet)??10 Milligram 1 tablet By Mouth Daily Metoprolol (Metoprolol Succinate ER 50 mg oral tablet, extended release)??See Instructions TAKE 1 TABLET BY MOUTH EVERY DAY ? Allergies Allergies ?(Active and Proposed Allergies Only) Bactrim? (Severity: Unknown severity, Onset: Unknown) Vicodin? (Severity: Unknown severity, Onset: Unknown) ? Hospital Course ?? 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 In the emergencyroom patient was noted to be hemodynamically stable.?? Troponin within normal limit.?? All labs normal.?? CT head did not show any acute intracranial abnormality.?? Patient admitted with concern for the change in mental status from her baseline. ? Altered mental status Bipolar disorder, untreated,??with anxiety, with mixed psychotic features as well Unclear, CT head without any acute abnormality.?? CTA done which shows no acute intracranial large vessel occlusion.?? Moderate focal stenosis of the proximal cavernous segment of the right ICA.?? Nohemodynamically significant stenosis of extracranial in terminal carotid or vertebral arteries at this time. No signs of any acute infection, no significant electrolyte abnormalities noted as to the possible cause for the mental status changes. Viral panel negative. Patient's speech is slow, and talking about random things related at the time while she was workingand not making sense seen by psychiatry?? - Has been more anxious lately.?? Unable to take care of herself on her own, has been concerned and not comfortable with her returning to home due to to her current condition. Patient meets criteria for involuntary inpatient psychiatric hospitalization.?? Started on Abilify 5 mg daily, section 12 has been completed by psychiatry. Medically cleared at this time, has inpatient psych bed availability, plan transfer to inpatient psych facility ?? History of cardiomyopathy Patient reports history of coxsackie induced cardiomyopathy in the past. Follows with cardiology, had an echo in February 2024 which showed mildly reduced EF of 45%.?? Was seen by cardiology at that time and given no symptoms plan was to follow-up with a repeat echocardiogram this month. Currently without any symptoms - ??continue to follow??outpatient with cardiology. ?? Hypertension on metoprolol and lisinopril.?? Blood pressure??noted to be slightly elevated,??currently on metoprolol and lisinopril. ??Continue to follow outpatient and if needed further adjustments to be made accordingly. ?? Hypothyroidism TSH within normal limits continue levothyroxine ?? CODE STATUS is full ?? Patient medically stable, at this time to be discharged to??inpatient psych facility. ?? Objective ?? patient??seen in ED , ambulating, slow to talk ?? Vital Signs?? Temperature: 97.6 DegF (05/15/24 00:00:00) Temperature: 97.6 DegF (05/15/24 00:00:00) Temperature Route: Oral (05/15/24 00:00:00) Temperature Route: Oral (05/15/24 00:00:00) Pulse Rate:??116 bpm??High (05/15/24 05:00:00) Heart Rate Monitored:??108 bpm??High (05/15/24 04:44:00) Respiratory Rate:??14 br/min??Low (05/15/24 05:00:00) Systolic Blood Pressure:??154 mm Hg??High (05/15/24 05:00:00) Diastolic Blood Pressure:??90 mm Hg??High (05/15/24 05:00:00) Blood pressure sites: Arm, left (05/15/24 05:00:00) Mean Arterial Pressure: 116 mm Hg (05/15/24 00:00:00) Pulse Pressure: 64 mm Hg (05/15/24 05:00:00) Oxygen Saturation: 96 % (05/15/24 05:00:00) Mode of Delivery (Oxygen): Room air (05/15/24 05:00:00) Early Warning Score: 4 (05/15/24 08:27:43) ? . Physical Exam Middle??aged??female??not in any acute distress, flat affect. ??Very slow to answer to any questions at all.?? 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 ??Ambulating Consultants Psychiatry Pending Results Add On Lab Order ordered on 05/14/2024 Amphetamine Urine Screen ordered on 05/13/2024 Barbiturate Urine Screen ordered on 05/13/2024 Benzodiazepine Urine Screen ordered on 05/13/2024 Cannabinoid Urine Screen ordered on 05/13/2024 Cocaine Urine Screen ordered on 05/13/2024 Opiate Screen Urine ordered on 05/13/2024 UA W/Reflex Culture & Renal ordered on 05/14/2024 Urinalysis w/hold for Urine Culture ordered on 05/13/2024 Follow-Up Appointments Added Follow Up ?Time Frame ?Comments Destiny GRULLON, Casimiro?2 to 3 weeks Patient Instructions Follow-up with your primary care physician upon discharge from the facility. Blood pressure follow-up to be done and medications to be adjusted accordingly. Stay on a low-salt diet Post Discharge Care Diet: ??Cardiac diet ?? Activity: ??as tolerated ?? Code Status: ??full ?? Condition: ??fair ?? Prognosis: ??Fair ?? Discharge ?inpatient psych facility, 05/15/24 11:11:00 EST ?Order Comment:?? Home Health Face to Face ^[facility]Health[facility] Results Discharge Labs BLOOD COUNT & DIFF WBC 9.3 k/mm3 ()?? 05/13/2024 21:21 RBC 4.75 m/mm3 ()?? 05/13/2024 21:21 Hgb 14.4 Gm/dL ()?? 05/13/2024 21:21 Hct 44.4 % ()?? 05/13/2024 21:21 MCV 93.5 femtoliters ()?? 05/13/2024 21:21 MCH 30.3 pg ()?? 05/13/2024 21:21 MCHC 32.4 Gm/dL (Low)?? 05/13/2024 21:21 Platelet Count 346 k/mm3 ()?? 05/13/2024 21:21 RDW-SD 42.9 femtoliters ()?? 05/13/2024 21:21 MPV 10.1 femtoliters ()?? 05/13/2024 21:21 Nucleated RBC (Automated) 0.0 #/100 WBC'S ()?? 05/13/2024 21:21 Abs. NRBC 0.0 k/mm3 ()?? 05/13/2024 21:21 Abs. Neut 7.4 k/mm3 (High)?? 05/13/2024 21:21 Abs. Lymph 1.1 k/mm3 ()?? 05/13/2024 21:21 Abs. Polk 0.7 k/mm3 ()?? 05/13/2024 21:21 Abs. Eo 0.0 k/mm3 ()?? 05/13/2024 21:21 Abs. Baso 0.1 k/mm3 ()?? 05/13/2024 21:21 Neut % 80.1 % (High)?? 05/13/2024 21:21 Lymph % 11.4 % (Low)?? 05/13/2024 21:21 Polk % 7.3 % ()?? 05/13/2024 21:21 Eos % 0.2 % ()?? 05/13/2024 21:21 Baso % 0.6 % ()?? 05/13/2024 21:21 Imm Gran 0.4 % ()?? 05/13/2024 21:21 Abs. Imm Gran 0.0 k/mm3 ()?? 05/13/2024 21:21 ?? CARDIAC High Sensitivity Troponin (HSTnT) 10 ng/L ()?? 05/13/2024 21:21 ? CHEM GENERAL Sodium 139 mmol/L ()?? 05/13/2024 21:21 Potassium 4.0 mmol/L ()?? 05/13/2024 21:21 Chloride 100 mmol/L ()?? 05/13/2024 21:21 Bicarbonate Level 25 mmol/L ()?? 05/13/2024 21:21 Anion Gap 14 mmol/L ()?? 05/13/2024 21:21 Glucose Level 98 mg/dL ()?? 05/13/2024 21:21 BUN 14 mg/dL ()?? 05/13/2024 21:21 Creatinine-Blood 0.65 mg/dL ()?? 05/13/2024 21:21 Estimated GFR Creatinine 100 ML/MIN/1.73 M2 ()?? 05/13/2024 21:21 Calcium 9.9 mg/dL ()?? 05/13/2024 21:21 Protein, Total 8.7 Gm/dL (High)?? 05/13/2024 21:21 Albumin 4.6 Gm/dL ()?? 05/13/2024 21:21 AG Ratio 1.1 ()?? 05/13/2024 21:21 Alkaline Phosphatase 142 units/L (High)?? 05/13/2024 21:21 AST (SGOT) 17 units/L ()?? 05/13/2024 21:21 ALT (SGPT) 15 units/L ()?? 05/13/2024 21:21 Bilirubin, Total 0.5 mg/dL ()?? 05/13/2024 21:21 Lactate 1.3 mmol/L ()?? 05/13/2024 21:21 ?? ENDOCRINE/TUMOR MARKER TSH 2.24 uIU/mL ()?? 05/13/2024 21:21 Blood 5 mIU/mL (High)?? 05/13/2024 21:21 ?? MISC. CHEMISTRY Ammonia, Venous 34 ??mole/L ()?? 05/13/2024 22:10 ? TOXICOLOGY/TDM Ethanol, Serum or Plasma NONE DETECTED mg/dL ()?? 05/13/2024 21:21 Salicylate Level <0.3 mg/dL (Low)?? 05/13/2024 21:21 Acetaminophen Level <5 mg/L (Low)?? 05/13/2024 21:21 ? VIROLOGY Adenovirus by PCR NEGATIVE ()?? 05/14/2024 11:55 Coronavirus 229E by PCR (not COVID-19) NEGATIVE ()?? 05/14/2024 11:55 Coronavirus HKU1 by PCR (not COVID-19) NEGATIVE ()?? 05/14/2024 11:55 Coronavirus NL63 by PCR (not COVID-19) NEGATIVE ()?? 05/14/2024 11:55 Coronavirus OC43 by PCR (not COVID-19) POSITIVE (Abnormal)?? 05/14/2024 11:55 Human Metapneumovirus by PCR NEGATIVE ()?? 05/14/2024 11:55 Rhinovirus/Enterovirus by PCR NEGATIVE ()?? 05/14/2024 11:55 Influenza A by PCR NEGATIVE ()?? 05/14/2024 11:55 Influenza B by PCR NEGATIVE ()?? 05/14/2024 11:55 Parainfluenza 1 by PCR NEGATIVE ()?? 05/14/2024 11:55 Parainfluenza 2 by PCR NEGATIVE ()?? 05/14/2024 11:55 Parainfluenza 3 by PCR NEGATIVE ()?? 05/14/2024 11:55 Parainfluenza 4 by PCR NEGATIVE ()?? 05/14/2024 11:55 RSV by PCR NEGATIVE ()?? 05/14/2024 11:55 Bordetella Pertussis by PCR NEGATIVE ()?? 05/14/2024 11:55 Chlamydophila Pneumoniae by PCR NEGATIVE ()?? 05/14/2024 11:55 Mycoplasma Pneumoniae by PCR NEGATIVE ()?? 05/14/2024 11:55 COVID-19 (SARS-CoV-2) by PCR NEGATIVE ()?? 05/14/2024 11:55 Bordetella Parapertussis by PCR NEGATIVE ()?? 05/14/2024 11:55 ? Microbiology ?? Respiratory Pathogen PCR with COVID-19?? Completed?? Source: Nasal Body Site: Nose Collected Dt/Tm: 05/14/2024 03:13 Last Updated Dt/Tm: 05/14/2024 13:00 ? Image ?CT Head/Brain W/O Contrast??05/13/2024 21:47 by Antony Naylor ?IMPRESSION: No acute intracranial pathology. ?CT Angio Neck??05/13/2024 21:51 by Antony Naylor ?IMPRESSION: 1. No acute intracranial large vessel occlusion. 2. 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 3. No hemodynamically-significant stenoses of the extracranial internal carotid and vertebral arteries. ?CT Angio Head??05/13/2024 21:51 by Antony Naylor ? 35??minutes spent on discharge Patient Care team information Care Team Personnel Name: Selvin Hebert RN Position: [facility] RN Member Role: Primary Care Nurse Name: Radha Carver RN Position: S RN Member Role: Primary Care Nurse Name: Shiva Smith RN Position: [facility] ED RN W/OE and Tasks Member Role: Primary Care Nurse Name: Sally Demarco RN Position: [facility] RN Member Role: Primary Care Nurse Name: Casimiro Dixon DO Position: [facility] Outreach Member Role: PCP Address: [address] [place] [address] [address] [place] [id number] Telecom: Name: Penelope Hernandez RN Position: [facility] AMB Nurse Member Role: Primary Care Nurse Name: Dayna Shaw RN Position: [facility] RN Member Role: Primary Care Nurse Name: Rosaura Nolasco RN Position: [facility] RN Member Role: Primary Care Nurse Care Team Related Persons Name: MOSES RHODES Name: DHARMESH FREIRE Insurance Providers Guarantor name: LI RHODES Health Plan Information #: 2 Payer: [facility] Member Number: [id number] Policy Number: NA Group Number: [facility] [employer] Plan Information #: 1 Payer: [facility] Member Number: [id number] Policy Number: NA Group Number: [id number]
--- OUTSIDE RECORDS SUMMARY | 2024-05-16 13:34 | XMS_ITS | Clinical Summary ---
Author Organization [employer] 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 Role Phone Casimiro Dixon DO Primary Care Provider [phone] Social History Tobacco Use Types Packs/Day Years Used Date Smoking Tobacco: Never Assessed Comments Unknown Sex and Gender Information Value Date Recorded Sex Assigned at Not on file Legal Sex Female 7:48 PM EST Gender Identity Not on file Sexual Orientation Not on file Last Filed Vital Signs Vital Sign Reading Time Taken Comments Blood Pressure 128/82 01/01/2024 9:24 AM EDT Pulse - - Temperature - - Respiratory Rate - - Oxygen Saturation - - Inhaled Oxygen Concentration - - Weight 97.1 kg (214 lb) 01/01/2024 9:24 AM EDT Height 162.6 cm (5' 4 ) 01/01/2024 9:24 AM EDT Body Mass Index 36.73 01/01/2024 9:24 AM EDT Plan of Treatment Health Maintenance Due Date Last Done Comments Breast Cancer Screening 1960 DTaP,Tdap,and Td Vaccines (1 - Tdap) 1981 Cervical Cancer Screening: P ap Smear 09/25/1983 Pneumococcal Vaccine: 50+ Ye ars (1 of 1 - PCV) 2012 Zoster Vaccines (1 of 2) 2012 Colorectal Cancer Screening: Colonoscopy 03/04/2022 Depression Screening 03/04/2022 HIV Screening 03/04/2022 Hepatitis C Screening 03/04/2022 Social Influencers of Health Screening 03/04/2022 COVID-19 Vaccine (1 - 2024-2 5 season) 2023 Influenza Vaccine (#1) 2023 RSV Immunization Patients 60 + Years Old (1 - 1-dose 75+ series) 2037 HIB Vaccines Aged Out No longer eligi ble based on patient's age to complete this topic HPV Vaccines Aged Out No longer eligi ble based on patient's age to complete this topic Hepatitis A Vaccines Aged Out No long er eligible based on patient's age to complete this topic Hepatitis B Vaccines Aged Out No long er eligible based on patient's age to complete this topic IPV Vaccines Aged Out No longer eligi ble based on patient's age to complete this topic MMR Vaccines Aged Out No longer eligi ble based on patient's age to complete this topic Meningococcal ACWY Vaccine Aged Out N o longer eligible based on patient's age to complete this topic Meningococcal B Vacine Aged Out No lo nger eligible based on patient's age to complete this topic Pneumococcal Vaccine: Pediat rics (0 to 5 Years) and At-Risk Patients (6 to 64 Years) Aged Out No longer eligible b ased on patient's age to complete this topic RSV Immunization Patients Un jasbir 20 months Aged Out No longer eligible b ased on patient's age to complete this topic Varicella Vaccines Aged Out No longer eligible based on patient's age to complete this topic Care Teams Diesel Engine I Pipe Fitter Relationship Specialty Start Date End Date Casimiro Dixon DO [address] [place] [id number] PCP - General 11/29/23
[2024-05-16 13:39] LABS: Lithium < 0.10 mmol/L (0.60-1.20)
[2024-05-16 13:48] LABS: Valproate < 12.5 mcg/mL (50.0-100.0)
[2024-05-16 13:53] LABS: Alanine Aminotransferase 24 U/L (0-31); Albumin Level 4.5 g/dL (3.5-5.0); Anion Gap 19 (12-20); Aspartate Amino Transferase 32 U/L (5-31); Bilirubin Total 0.6 mg/dL (0.0-1.0); Blood Urea Nitrogen 19 mg/dL (9-16); Calcium 10.1 mg/dL (8.4-10.2); Carbon Dioxide 21 mmol/L (22-29); Chloride 104 mmol/L (96-108); Creatinine Clr Calc Pharmacy 78.3; Estimated Glomerular Filt Rate > 60; Glucose Random 108 mg/dL (60-115); Potassium 3.8 mmol/L (3.3-5.1); Sodium 140 mmol/L (135-145); Total Protein 9.3 g/dL (6.5-8.0)
[2024-05-16 13:56] LABS: Influenza A PCR NEGATIVE (Negative); Influenza B PCR NEGATIVE (Negative); Resp Syncy Virus RNA Qual PCR NEGATIVE (Negative); SARS COV2 PCR INHOUSE NEGATIVE (Negative)
[2024-05-16 14:05] LABS: TSH reflex Free T4 3.22 uIU/mL (0.32-4.0)
[2024-05-16 14:11] LABS: Alkaline Phosphatase 135 U/L (39-117)
[2024-05-16 14:56] LABS: Appearance Urine Cloudy; Color Urine Yellow; Glucose Urine UA Negative (Negative); Leukocyte Esterase Urine Moderate (2+) (Negative); Nitrite Urine Negative (Negative); PH 5.5 (5.0-9.0); Specific Gravity - Urine >= 1.030 (1.005-1.025); UMIC TRIGGER UACC YES; Urine Blood Negative (Negative); Urine Ketones 80 mg/dL (Negative); Urine Protein 30 (1+) mg/dL (Neg-Trace)
[2024-05-16 15:01] LABS: Bacteria Urine Trace (None Seen); RBC Urine 0-2 /HPF (0-2); Squamous Epithelial Cell Urine 0-2 /HPF (0-2); UACC Culture Trigger YES; WBC Urine >50 /HPF (0-5)
[2024-05-16 15:15] VITALS: BP 191/89; PULSE 112; RESP 18; TEMP 36.7; O2SAT 96
[2024-05-16] MEDS: cefuroxime axetiL 250 MG TABLET PO (15:24)
[2024-05-16 18:55] VITALS: BP 144/88; PULSE 120; RESP 16; TEMP 36.8; O2SAT 96
[2024-05-16 22:46] VITALS: BP 151/97; PULSE 122; RESP 18; TEMP 36.6; O2SAT 97
--- NOTE | 2024-05-16 22:47 | PC.NURSE ---
EMS arrival for transport back to [facility]
[2024-05-16 22:56] VITALS: BP 151/97; PULSE 122; RESP 18; TEMP 36.6; O2SAT 97
== END 2024-05-16 22:56 ==
PROVIDERS: Physician Assistant Medical; Emergency Provider Emergency Medicine; PCP Internal Medicine
DX: R00.0 Tachycardia, unspecified (principal); R41.82 Altered mental status, unspecified; N39.0 Urinary tract infection, site not specified; R47.81 Slurred speech; I10 Essential (primary) hypertension; R10.2 Pelvic and perineal pain; Z79.899 Other long term (current) drug therapy; Z03.818 Encounter for observation for suspected exposure to other biological agents ruled out
CPT/HCPCS: 0241U; 36415; 70450; 80053; 80164; 80178; 81001; 83735; 84443; 85025; 85610; 85730; 87086; 93005; 99284

== ENCOUNTER → 2024-05-16 12:11 | Outpatient (BNV) | payer SELFPAY | PROVIDERS: Emergency Provider Emergency Medicine; Visit Provider Radiology Diagnostic Radiology | DX: R41.82 Altered mental status, unspecified (principal) | CPT/HCPCS: 70450 ==

== ENCOUNTER → 2024-05-16 12:11 | Outpatient (BNV) | payer SELFPAY | PROVIDERS: Emergency Provider Emergency Medicine; PCP Internal Medicine; Visit Provider Internal Medicine Cardiovascular Disease | DX: I44.4 Left anterior fascicular block (principal); R00.0 Tachycardia, unspecified | CPT/HCPCS: 93010 ==